=== PATIENT | female | born 2000 | race Two or more races ===

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

== ENCOUNTER 2022-09-01 18:26 | Emergency (ER) | payer OTHER ==
[~2022-09-01] VITALS: Ht 154.9 cm; Wt 44.7 kg
[2022-09-01 20:49] VITALS: BP 134/94
[2022-09-01] MEDS ORDERED: AMOX-277 PO (20:49)
[2022-09-01] MEDS ORDERED: ACET-1158 PO (20:49)
== END 2022-09-01 21:56 | disposition home or self-care (01) ==
LOC: ER 18:30
DX: J02.9 Acute pharyngitis, unspecified (principal)